=== PATIENT | female | born 1945 | race Hispanic/Latino ===

== ENCOUNTER → 2018-12-23 | Outpatient (CLI) | payer OTHER | END | disposition home or self-care (01) | LOC: RAH 13:01 | PROVIDERS: ATTEND Family Medicine | DX: N60.01 Solitary cyst of right breast (principal) | CPT/HCPCS: 77066 ==

== ENCOUNTER 2020-07-01 22:48 | Emergency (ER) | payer OTHER ==
[2020-07-01] MEDS ORDERED: HYDROCODONE/ACETAMINOPHEN 5/325 MG TAB ONE (23:27)
[2020-07-02] MEDS ORDERED: MORPHINE 4 MG SYG ONE (00:12)
== END 2020-07-02 00:45 | disposition home or self-care (01) ==
LOC: EDH 22:48
DX: S42.251A Displaced fracture of greater tuberosity of right humerus, initial encounter for closed fracture (principal); M19.90 Unspecified osteoarthritis, unspecified site; E11.9 Type 2 diabetes mellitus without complications; E03.9 Hypothyroidism, unspecified; Z90.49 Acquired absence of other specified parts of digestive tract; Z90.710 Acquired absence of both cervix and uterus; Z98.890 Other specified postprocedural states; Z88.6 Allergy status to analgesic agent; W18.39XA Other fall on same level, initial encounter; Y93.01 Activity, walking, marching and hiking; Y92.89 Other specified places as the place of occurrence of the external cause; Y99.8 Other external cause status
CPT/HCPCS: 71045; 73030; 73562; 96372; 99284; J2270

== ENCOUNTER → 2022-07-23 | Outpatient (CLI) | payer OTHER | END | disposition home or self-care (01) | LOC: RAH 12:35 | PROVIDERS: ATTEND Family Medicine | DX: N64.4 Mastodynia (principal) | CPT/HCPCS: 76641; 77066 ==

== ENCOUNTER → 2024-06-16 | Outpatient (CLI) | payer OTHER ==
--- NOTE | 2024-06-16 14:17 | HMCIMG ---
FOOT COMP 3+VWS RT HISTORY: Right great toe pain COMPARISON: None TECHNIQUE: 3 images of right great toe were obtained. FINDINGS: There is a small calcaneal spur. There is no acute displaced fracture or dislocation. Degenerative changes are seen. IMPRESSION: 1. Findings as described above.
== END | disposition home or self-care (01) ==
LOC: RAH 13:21
PROVIDERS: ATTEND Family Medicine
DX: S90.111A Contusion of right great toe without damage to nail, initial encounter (principal); M19.071 Primary osteoarthritis, right ankle and foot; M77.31 Calcaneal spur, right foot; M79.674 Pain in right toe(s); X58.XXXA Exposure to other specified factors, initial encounter; Y93.89 Activity, other specified; Y92.89 Other specified places as the place of occurrence of the external cause; Y99.8 Other external cause status
CPT/HCPCS: 73630

== ENCOUNTER → 2024-07-17 | Outpatient (CLI) | payer OTHER ==
--- NOTE | 2024-07-17 15:35 | HMCIMG ---
HAND 3+VWS LT HISTORY: Left thumb pain COMPARISON: None TECHNIQUE: 3 images of the left hand were obtained. FINDINGS: Intercarpal joint space narrowing at the interphalangeal joint space is seen. There is no acute displaced fracture or dislocation. Degenerative changes are seen. IMPRESSION: 1. Findings as described above.
== END | disposition home or self-care (01) ==
LOC: RAH 14:50
PROVIDERS: ATTEND Family Medicine
DX: M19.042 Primary osteoarthritis, left hand (principal); M79.642 Pain in left hand
CPT/HCPCS: 73130

== ENCOUNTER → 2024-12-20 | Outpatient (CLI) | payer OTHER ==
[2024-12-20 22:42] VITALS: PULSE 70; RESP 14
[2024-12-20 23:30] VITALS: PULSE 64; RESP 12
[2024-12-21] VITALS (11 sets, daily range): PULSE 54–64; RESP 12–16
== END | disposition home or self-care (01) ==
LOC: SLP 20:45
PROVIDERS: ATTEND Family Medicine
DX: G47.33 Obstructive sleep apnea (adult) (pediatric) (principal); G47.10 Hypersomnia, unspecified; M25.50 Pain in unspecified joint; R53.83 Other fatigue; E11.9 Type 2 diabetes mellitus without complications; M54.2 Cervicalgia; R06.83 Snoring
CPT/HCPCS: 95811